=== PATIENT | female | born 1980 | race Hispanic/Latino ===

== ENCOUNTER 2019-05-23 17:18 | Emergency (ER) | payer SELFPAY ==
[2019-05-23 19:02] LABS: Absolute Lymphocytes (CBC) 2.2 K/uL (0.7-4.9); Lymphocytes % 19.1 % (15.3-44.8); MPV 7.2 fL (7.6-11.3); RBC Red Blood Cell Count 4.06 M/uL (3.86-4.86)
[2019-05-23 19:20] LABS: ALT/SGPT 24 U/L (12-78); AST/SGOT 16 U/L (15-37); Albumin 3.1 g/dL (3.4-5.0); Alkaline Phosphatase 78 U/L (45-117); BUN Blood Urea Nitrogen 7 mg/dL (7-18); Bicarbonate 25 mmol/L (21-32); Bilirubin Direct 0.2 mg/dL (0-0.2); Bilirubin Total 0.4 mg/dL (0.2-1.0); Glucose Level 85 mg/dL (74-106); Lipase 92 U/L (73-393); Potassium 3.3 mmol/L (3.5-5.1); Protein, Total 8.1 g/dL (6.4-8.2); Sodium Level 139 mmol/L (136-145)
[2019-05-23] MEDS ORDERED: ONDANSETRON 4 MG/2 ML VIAL ONE (19:32)
[2019-05-23] MEDS ORDERED: MORPHINE 4 MG/ML SYR ONE (19:32)
[2019-05-23] MEDS ORDERED: NA CHLORIDE 0.9% 1,000 ML ONE (19:32)
[2019-05-23] MEDS ORDERED: CEFTRIAXONE/SWI 1gm 1 GM/10 ML SYR ONE (19:32)
[2019-05-23 19:51] LABS: Urine Blood 2+ (NEG); Urine Glucose NEGATIVE (NEG); Urine Protein 2+ (NEG); Urine Specific Gravity 1.025 (1.005-1.030); Urine pH 5.5 (5.0-7.0)
--- NOTE | 2019-05-23 20:06 | RAD REPORT ---
EXAM DESCRIPTION: US - Transvaginal Study Probe - 05/23/2019 7:35 pm CLINICAL HISTORY: Abdominal pain, heavy vaginal bleeding COMPARISON: None. TECHNIQUE: Endovaginal sonography was performed. FINDINGS: Endovaginal sonography is performed. Due to pain, patient was unable to tolerate optimal p ositioning. Neither ovary is identifiable obscured by enlarged uterus/ mass and bowel. Filling the pelvis there i s a 16 x 12 x 9 centimeter mass. This shows heterogeneous echogenicity. Doppler evaluation shows incr eased blood flow scattered throughout this mass. No normal endometrial or myometrial tissue identifia ble. No free fluid in the cul de sac. Most commonly this is a very large single fibroid or multiple abutting fibroids. Possibility of a clay metrial or endometrial malignancy cannot be excluded. IMPRESSION: Large 16 centimeter mass filling the pelvis believed to be an enlarged uterus containing a single dominant large fibroid or cluster of fibroids. No normal myometrial or endometrial tissue identifiable. Ovaries are obscured by the mass and bowel. While benign fibroid disease is statistically most likely, neoplastic process of the uterus cannot be excluded.
--- NOTE | 2019-05-23 20:10 | RAD REPORT ---
EXAM DESCRIPTION: CT - Abdomen Pelvis W Contrast - 05/23/2019 7:45 pm CLINICAL HISTORY: ABD PAIN COMPARISON: Pelvic ultrasound same date TECHNIQUE: Biphasic, helical CT imaging of the abdomen and pelvis was performed following 100 ml non -ionic IV contrast. Oral contrast was given. All CT scans are performed using dose optimization technique as appropriate and may include automated exposure control or mA/KV adjustment according to patient size. FINDINGS: No suspicious findings in the lung bases. The liver, spleen, and pancreas show no suspicious findings. Gallbladder and biliary tree are also wi thout suspicious finding. Symmetric renal function is seen with no hydronephrosis or suspicious renal mass. No pyelonephritis o r acute parenchymal process. Urinary bladder is contracted limiting assessment. No adrenal abnormalit ies. No dilated bowel loops or bowel wall thickening. No acute appendicitis findings identifiable. A few s mall mesenteric lymph nodes are present. No free air, free fluid or inflammatory stranding. There is an 18 x 12 x 10 centimeter heterogeneous enhancing mass filling the pelvis. There is no normal uteru s present. This is believed to be a uterus enlarged by a single large fibroid. [place] of multiple fibroids would be possible. No normal endometrial or myometrial tissue confirmed. Malignant process of the uterus is not excluded. Numerous congested veins are seen in the pelvis. Dilated but non throm bosed gonadal veins are present extending towards the renal vasculature. Fat only umbilical hernia is present. No omental thickening. No ascites or other findings that would be supportive of a malignant process. IMPRESSION: Large 18 x 12 x 10 centimeter mass filling the pelvis is believed to be grossly enlarged uterus. Enlargement may be due to a single large fibroid or confluence of multiple fibroids. A malignant endometrial or myometrial process is certainly possible. No ascites, omental thickening, lymphadenopathy or other finding that would elevate probability of malignancy. No acute GI or process identifiable.
--- NOTE | 2019-05-23 20:35 | ER ---
Nurse's Notes [facility] Name: María Campbell Age: 38 yrs Sex: Female : 1980 Arrival Date: 05/23/2019 Time: 17:19 Bed 27 Private MD: Diagnosis: Leiomyoma of uterus-19 weeks size;Pelvic and perineal pain;Abdominal tenderness;Hypokalemia Presentation: 05/23 17:34 Presenting complaint: Significant other states: she has been having a lot of pain on tw2 the lower right abdomen and radiates to the low back. Presenting complaint: Patient states: no nausea vomiting. Transition of care: patient was not received from another setting of care. Onset of symptoms was May 23, 2019. Risk Assessment: Do you want to hurt yourself or someone else? Patient reports no desire to harm self or others. Initial Sepsis Screen: Does the patient meet any 2 criteria? No. Patient's initial sepsis screen is negative. Does the patient have a suspected source of infection? No. Patient's initial sepsis screen is negative. Care prior to arrival: None. 17:34 Method Of Arrival: Ambulatory tw2 17:34 Acuity: LYNNETTE 3 tw2 Triage Assessment: 17:35 General: Appears in no apparent distress. Behavior is calm, cooperative, appropriate tw2 for age. Pain: Complains of pain in abdomen Pain radiates to back. GI: Reports lower abdominal pain, upper abdominal pain. : Reports vaginal bleeding that is. 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 - Social history:: Smoking status: . - Ebola Screening: : Patient denies travel to an Ebola-affected area in the 21 days before illness onset. - Family history:: not pertinent. Screenin:52 Abuse screen: Denies threats or abuse. Denies injuries from another. Nutritional rv screening: No deficits noted. Tuberculosis screening: No symptoms or risk factors identified. Fall Risk None identified. Assessment: 17:50 General: Appears in no apparent distress. uncomfortable, Behavior is calm, cooperative. rv Pain: Complains of pain in back and abdomen. Neuro: Level of Consciousness is awake, alert, obeys commands, Oriented to person, place, time, situation. Cardiovascular: Patient's skin is warm and dry. Respiratory: Airway is patent. GI: Bowel sounds present X 4 quads. Abd is soft and non tender X 4 quads. : No signs and/or symptoms were reported regarding the genitourinary system. EENT: No signs and/or symptoms were reported regarding the EENT system. Derm: Skin is intact. Musculoskeletal: No signs and/or symptoms reported regarding the musculoskeletal system. Vital Signs: 17:35 BP 128 / 74; Pulse 101; Resp 17; Temp 98(TE); Pulse Ox 97% on R/A; Weight 71.67 kg (R); tw2 Pain 9/10; 18:20 BP 117 / 87; Pulse 89; Resp 16; Pulse Ox 100% on R/A; rv 19:30 BP 120 / 76; Pulse 86; Resp 17; Pulse Ox 98% on R/A; rv 20:30 BP 121 / 78; Pulse 88; Resp 16; Pulse Ox 98% on R/A; rv 21:00 BP 118 / 75; Pulse 84; Resp 15; Pulse Ox 98% on R/A; rv ED Course: 17:19 Patient arrived in ED. mr 17:35 Triage completed. tw2 17:36 Arm band placed on. tw2 17:40 Sathish Dyer, RN is Primary Nurse. rv 17:53 Patient has correct armband on for positive identification. Placed in gown. Bed in low rv position. Call light in reach. Side rails up X 1. Pulse ox on. NIBP on. 18:03 Marlon Calzada MD is Attending Physician. chris 18:11 Inserted saline lock: 20 gauge in left antecubital area, using aseptic technique. Blood rv collected. 18:49 Radiology exam delayed due to lab results not completed at this time. (BUN/Creatinine) vm2 test not completed at this time. IV insertion attempt and/or patient not having appropriate IV at this time. 19:36 US Transvaginal Study (Probe) In Process Unspecified. EDMS 19:45 CT completed. Patient tolerated procedure well. Patient moved to CT. Patient moved back md from CT. 19:46 CT Abd/Pelvis - IV Contrast Only In Process Unspecified. EDMS 20:16 Ultrasound completed. Patient tolerated poorly. lc3 20:35 Bimal Marcano MD is Referral Physician. chris 20:35 Sepideh Nuñez MD is Referral Physician. chris 21:04 No provider procedures requiring assistance completed. IV discontinued, intact, rv bleeding controlled, No redness/swelling at site. Pressure dressing applied. Administered Medications: 19:45 Drug: NS 0.9% 1000 ml Route: IV; Rate: 1 bolus; Site: right antecubital; rv 21:02 Follow up: IV Status: Completed infusion; IV Intake: 1000ml rv 19:45 Drug: morphine 4 mg {Note: rass 0.} Route: IVP; Site: right antecubital; rv 21:02 Follow up: Response: No adverse reaction; RASS: Alert and Calm (0) rv 19:45 Drug: Zofran 4 mg Route: IVP; Site: right antecubital; rv 21:02 Follow up: Response: No adverse reaction rv 19:45 Drug: Rocephin 1 grams Route: IV; Rate: per protocol; Site: right antecubital; rv 21:02 Follow up: IV Status: Completed infusion rv 21:00 Drug: Potassium Effervescent Tablet 25 mEq Route: PO; rv 21:03 Follow up: Response: Medication administered at discharge. rv Intake: 21:02 IV: 1000ml; Total: 1000ml. rv Outcome: 20:35 Discharge ordered by . chris 21:04 Discharged to home ambulatory, with family. rv 21:04 Condition: good 21:04 Discharge instructions given to patient, Instructed on discharge instructions, follow up and referral plans. medication usage, Demonstrated understanding of instructions, follow-up care, medications, Prescriptions given X 2. 21:05 Patient left the ED. rv Signatures: Dispatcher [employer] EDMS Marlon Calzada MD MD cha Rivera, Mary mr Sanchez, Elda Potter RN RN tw2 Steve Engle [facility] Gomez, Sathish, RN RN rv
--- NOTE | 2019-05-23 20:36 | EDPHYS ---
Physician Documentation [facility] Name: María Campbell Age: 38 yrs Sex: Female : 1980 Arrival Date: 05/23/2019 Time: 17:19 Bed 27 Private MD: ED Physician Marlon Calzada HPI: 05/23 18:47 This 38 yrs old Female presents to ER via Ambulatory with complaints of chris Abdominal Pain, Back Pain. 18:47 The patient presents with pain and decreased range of motion. The symptoms are located chris in the left low back, left mid back, right mid back and right low back. Onset: The symptoms/episode began/occurred 3 day(s) ago. 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 - Social history:: Smoking status: . - Ebola Screening: : Patient denies travel to an Ebola-affected area in the 21 days before illness onset. - Family history:: not pertinent. ROS: 18:48 Constitutional: Negative for fever, chills, and weight loss, Eyes: Negative for injury, hcris pain, redness, and discharge, ENT: Negative for injury, pain, and discharge, Neck: Negative for injury, pain, and swelling, Cardiovascular: Negative for chest pain, palpitations, and edema, Respiratory: Negative for shortness of breath, cough, wheezing, and pleuritic chest pain, Back: Negative for injury and pain, : Negative for injury, bleeding, discharge, and swelling, MS/Extremity: Negative for injury and deformity, Skin: Negative for injury, rash, and discoloration, Neuro: Negative for headache, weakness, numbness, tingling, and seizure, Psych: Negative for depression, anxiety, suicide ideation, homicidal ideation, and hallucinations, Allergy/Immunology: Negative for hives, rash, and allergies, Endocrine: Negative for neck swelling, polydipsia, polyuria, polyphagia, and marked weight changes, Hematologic/Lymphatic: Negative for swollen nodes, abnormal bleeding, and unusual bruising. 18:48 Abdomen/GI: Positive for abdominal pain, of the suprapubic area, right lower quadrant and left lower quadrant. Exam: 18:48 Constitutional: This is a well developed, well nourished patient who is awake, alert, chris and in no acute distress. Head/Face: Normocephalic, atraumatic. Eyes: Pupils equal round and reactive to light, extra-ocular motions intact. Lids and lashes normal. Conjunctiva and sclera are non-icteric and not injected. Cornea within normal limits. Periorbital areas with no swelling, redness, or edema. ENT: Nares patent. No nasal discharge, no septal abnormalities noted. Tympanic membranes are normal and external auditory canals are clear. Oropharynx with no redness, swelling, or masses, exudates, or evidence of obstruction, uvula midline. Mucous membranes moist. Neck: Trachea midline, no thyromegaly or masses palpated, and no cervical lymphadenopathy. Supple, full range of motion without nuchal rigidity, or vertebral point tenderness. No Meningismus. Chest/axilla: Normal chest wall appearance and motion. Nontender with no deformity. No lesions are appreciated. Cardiovascular: Regular rate and rhythm with a normal S1 and S2. No gallops, murmurs, or rubs. Normal PMI, no JVD. No pulse deficits. Respiratory: Lungs have equal breath sounds bilaterally, clear to auscultation and percussion. No rales, rhonchi or wheezes noted. No increased work of breathing, no retractions or nasal flaring. Back: No spinal tenderness. No costovertebral tenderness. Full range of motion. Female : Normal external genitalia. Skin: Warm, dry with normal turgor. Normal color with no rashes, no lesions, and no evidence of cellulitis. MS/ Extremity: Pulses equal, no cyanosis. Neurovascular intact. Full, normal range of motion. Neuro: Awake and alert, GCS 15, oriented to person, place, time, and situation. Cranial nerves II-XII grossly intact. Motor strength 5/5 in all extremities. Sensory grossly intact. Cerebellar exam normal. Normal gait. Psych: Awake, alert, with orientation to person, place and time. Behavior, mood, and affect are within normal limits. 18:48 Abdomen/GI: Inspection: abdomen appears normal, Bowel sounds: normal, Palpation: moderate abdominal tenderness, Liver: no appreciated palpable abnormalities, Hernia: not appreciated. 20:35 : CVA tenderness, is absent, Pelvic Exam: External exam: is normal, Speculum exam: chris scant bleeding, bimanual exam reveals os that is closed, an enlarged uterus, uterine tenderness, no adnexa tenderness or masses bilaterally, a female fbi investigator was present for the exam, Bladder: is normal. Vital Signs: 17:35 BP 128 / 74; Pulse 101; Resp 17; Temp 98(TE); Pulse Ox 97% on R/A; Weight 71.67 kg (R); tw2 Pain 9/10; 18:20 BP 117 / 87; Pulse 89; Resp 16; Pulse Ox 100% on R/A; rv 19:30 BP 120 / 76; Pulse 86; Resp 17; Pulse Ox 98% on R/A; rv 20:30 BP 121 / 78; Pulse 88; Resp 16; Pulse Ox 98% on R/A; rv 21:00 BP 118 / 75; Pulse 84; Resp 15; Pulse Ox 98% on R/A; rv MDM: 18:03 Patient medically screened. [facility] 18:49 Data reviewed: vital signs, nurses notes, lab test result(s), radiologic studies, CT chris scan, ultrasound. 05/23 18:06 Order name: Urine Dipstick--Ancillary (enter results); Complete Time: 19:58 05/23 18:47 Order name: Basic Metabolic Panel; Complete Time: 19:58 [facility] 05/23 18:47 Order name: CBC with Diff; Complete Time: 19:58 [facility] 05/23 18:47 Order name: Creatinine for Radiology; Complete Time: 19:58 [facility] 05/23 18:47 Order name: Hepatic Function; Complete Time: 19:58 [facility] 05/23 18:47 Order name: Lipase; Complete Time: 19:58 [facility] 05/23 18:47 Order name: US Transvaginal Study (Probe); Complete Time: 20:14 [facility] 05/23 18:47 Order name: CT Abd/Pelvis - IV Contrast Only; Complete Time: 20:14 [facility] 05/23 18:47 Order name: Test, Serum; Complete Time: 19:58 [facility] 05/23 18:47 Order name: Urine Test (obtain specimen); Complete Time: 19:40 [facility] 05/23 18:47 Order name: IV Saline Lock; Complete Time: 19:39 [facility] 05/23 18:47 Order name: Labs collected and sent; Complete Time: 19:39 [facility] 05/23 20:02 Order name: Pelvic Exam Setup; Complete Time: 20:09 [facility] Administered Medications: 19:45 Drug: NS 0.9% 1000 ml Route: IV; Rate: 1 bolus; Site: right antecubital; rv 21:02 Follow up: IV Status: Completed infusion; IV Intake: 1000ml rv 19:45 Drug: morphine 4 mg {Note: rass 0.} Route: IVP; Site: right antecubital; rv 21:02 Follow up: Response: No adverse reaction; RASS: Alert and Calm (0) rv 19:45 Drug: Zofran 4 mg Route: IVP; Site: right antecubital; rv 21:02 Follow up: Response: No adverse reaction rv 19:45 Drug: Rocephin 1 grams Route: IV; Rate: per protocol; Site: right antecubital; rv 21:02 Follow up: IV Status: Completed infusion rv 21:00 Drug: Potassium Effervescent Tablet 25 mEq Route: PO; rv 21:03 Follow up: Response: Medication administered at discharge. rv Disposition: 05/23/19 20:35 Discharged to Home. Impression: Leiomyoma of uterus - 19 weeks size, Pelvic and perineal pain, Abdominal tenderness, Hypokalemia. - Condition is Stable. - Discharge Instructions: Abdominal Pain, Adult, Potassium Content of Foods, Uterine Fibroids, Pelvic Pain, Female, Pelvic Pain, Female, [id number], Abdominal Pain, Adult, [id number]-[id number], Uterine Fibroids, [id number]-[id number], Hypokalemia. - Prescriptions for Ibuprofen 600 mg Oral Tablet - take 1 tablet by ORAL route every 6 hours As needed take with food; 20 tablet. Tylenol- Codeine #3 300-30 mg Oral Tablet - take 2 tablet by ORAL route every 6 hours As needed; 30 tablet. - Medication Reconciliation Form, Thank You Letter, Antibiotic Education, Prescription Opioid Use form. - Follow up: Private Physician; When: 2 - 3 days; Reason: Recheck today's complaints, Continuance of care, Re-evaluation by your physician. Follow up: Bimal Marcano; When: 2 - 3 days; Reason: Recheck today's complaints, Continuance of care, Re-evaluation by your physician. Follow up: Sepideh Nuñez; When: 2 - 3 days; Reason: Recheck today's complaints, Re-evaluation by your physician. - Problem is new. - Symptoms have improved. Signatures: Dispatcher [employer] EDMS Marlon Calzada MD MD cha Wise, Tara, RN RN tw2 Sathish Dyer RN RN rv Corrections: (The following items were deleted from the chart) 20:37 20:35 05/23/2019 20:35 Discharged to Home. Impression: Leiomyoma of uterus; Pelvic and chris perineal pain; Abdominal tenderness; Hypokalemia. Condition is Stable. Discharge Instructions: Abdominal Pain, Adult, Uterine Fibroids, Pelvic Pain, Female, Pelvic Pain, Female, [id number], Abdominal Pain, Adult, [id number], Uterine Fibroids, Dgjp-[id number], Potassium Content of Foods, Hypokalemia. Prescriptions for Ibuprofen 600 mg Oral Tablet - take 1 tablet by ORAL route every 6 hours As needed take with food; 20 tablet, Tylenol-Codeine #3 300-30 mg Oral Tablet - take 2 tablet by ORAL route every 6 hours As needed; 30 tablet. and Forms are Medication Reconciliation Form, Thank You Letter, Antibiotic Education, Prescription Opioid Use. Follow up: Private Physician; When: 2 - 3 days; Reason: Recheck today's complaints, Continuance of care, Re-evaluation by your physician. Follow up: Bimal Marcano; When: 2 - 3 days; Reason: Recheck today's complaints, Continuance of care, Re-evaluation by your physician. Follow up: Sepideh Nuñez; When: 2 - 3 days; Reason: Recheck today's complaints, Re-evaluation by your physician. Problem is new. Symptoms have improved. [facility] 21:05 20:37 05/23/2019 20:35 Discharged to Home. Impression: Leiomyoma of uterus - 19 weeks rv size; Pelvic and perineal pain; Abdominal tenderness; Hypokalemia. Condition is Stable. Discharge Instructions: Abdominal Pain, Adult, Uterine Fibroids, Pelvic Pain, Female, Pelvic Pain, Female, [id number], Abdominal Pain, Adult, [id number]-[id number], Uterine Fibroids, Albq-bm-Aidg, Potassium Content of Foods, Hypokalemia. Prescriptions for Ibuprofen 600 mg Oral Tablet - take 1 tablet by ORAL route every 6 hours As needed take with food; 20 tablet, Tylenol-Codeine #3 300-30 mg Oral Tablet - take 2 tablet by ORAL route every 6 hours As needed; 30 tablet. and Forms are Medication Reconciliation Form, Thank You Letter, Antibiotic Education, Prescription Opioid Use. Follow up: Private Physician; When: 2 - 3 days; Reason: Recheck today's complaints, Continuance of care, Re-evaluation by your physician. Follow up: Bimal Marcano; When: 2 - 3 days; Reason: Recheck today's complaints, Continuance of care, Re-evaluation by your physician. Follow up: Sepideh Nuñez; When: 2 - 3 days; Reason: Recheck today's complaints, Re-evaluation by your physician. Problem is new. Symptoms have improved. chris
[2019-05-23] MEDS ORDERED: POTASSIUM 25 MEQ EFFERV TAB ONE (20:47)
[2019-05-23 23:15] VITALS: TEMP 98
[2019-05-23 23:18] VITALS: O2SAT 98
[2019-05-23 23:21] VITALS: BP 118/75
== END 2019-05-23 21:05 | disposition home or self-care (01) ==
LOC: ER 17:18
DX: D25.9 Leiomyoma of uterus, unspecified (principal); E87.6 Hypokalemia; R10.819 Abdominal tenderness, unspecified site; R10.2 Pelvic and perineal pain
CPT/HCPCS: 36415; 74177; 76830; 80048; 80076; 81003; 83690; 84703; 85025; 96365; 96375; 99284; J0696; J2405; J7030; Q9967